=== PATIENT | male | born 1995 | race Caucasian/White ===

== ENCOUNTER 2019-09-14 12:50 | Inpatient (IN) ==
[2019-09-14] MEDS ORDERED: IOPAMIDOL 100 ML BOTTLE IV ONE (12:51)
[2019-09-14] MEDS ORDERED: LORazepam 2 MG/ML VIAL IV ONE (13:05)
[2019-09-14] MEDS ORDERED: 0.9 % SODIUM CHLORIDE 1,000 ML IV ONE (13:05)
[2019-09-14] MEDS ORDERED: INSULIN REGULAR, HUMAN 1 UNIT/0.01 ML UNIT IV ONE (13:07)
[2019-09-14] MEDS ORDERED: INSULIN REGULAR, HUMAN 50 UNIT in 0.9 % SODIUM CHLORIDE 99.5 ML IV SCH (13:15)
[2019-09-14 14:05] LABS: Basophils # (Auto) 0.02 K/mcL (0.00-0.30); Basophils % (Auto) 0.3 % (0.0-2.0); Eosinophils # (Auto) 0.07 K/mcL (0.00-0.70); Eosinophils % (Auto) 0.9 % (0.0-7.0); Hematocrit 41.3 % (40.1-51.0); Hemoglobin 15.4 g/dL (13.7-17.5); Lymphocytes # (Auto) 2.06 K/mcL (1.50-4.80); Mean Corpuscular HGB Conc 37.3 g/dL (31.0-36.0); Mean Platelet Volume 10.9 fL (7.4-10.4); Monocytes # (Auto) 0.44 K/mcL (0.10-0.90); Monocytes % (Auto) 5.8 % (1.0-12.0); Platelet Count 190 K/mcL (140-440); RBC 4.86 M/mcL (4.63-6.08); Red Cell Distribution Width 12.3 % (11.5-14.5); WBC 7.6 K/mcL (4.50-11.00)
--- NOTE | 2019-09-14 14:19 | Emergency Department Note ---
Arrhythmia/Palpitations HPI - General Chief Complaint: Arrhythmia/Palpitations Stated Complaint: "Heart going fast" Time Seen by Provider: 09/14/19 12:53 Source: patient Mode of arrival: ambulatory Limitations: no limitations - History of Present Illness HPI Narrative: 24-year-old obese male comes in complaining of palpitations and heart racing. He has been nauseous and diaphoretic. Having to urinate all the time. His mother is worried that he has diabetes now but he has not previously been diagnosed. Noted blurry vision as well. Anxious - Related Data Home Medications Medication Instructions Recorded Confirmed No Known Home Meds 09/14/19 09/14/19 Allergies Allergy/AdvReac Type Severity Reaction Status Date / Time No Known Drug Allergies Allergy Verified 04/24/16 09:16 Review of Systems All systems ED: reviewed and negative except as stated. Past Medical History - Past Medical History Attestation: Yes: The following information was validated with the patient. PMF Narrative: Medical History Pilonidal cyst with abscess (Acute) Medical history: Reports: no medical history Psychiatric history: Reports: anxiety - Social History smoking status: Never smoker Physical Exam Mildly diaphoretic very anxious appearing-panicking even with tachycardia and tachypnea. Normocephalic atraumatic. Conjunctive a mildly injected bilaterally. Pupils are wide bilaterally. No nasal discharge or congestion. Oropharynx is pink and moist. Neck is supple without lymphadenopathy or thyromegaly. Heart is regular rate and rhythm no murmur appreciated. Lungs are clear to auscultation bilaterally without wheezes rales rhonchi or respiratory distress. Abdomen is soft nontender nondistended. No peritoneal signs or guarding. Mild edema bilateral feet. Limitations: no limitations Course Vital Signs Pulse Rate 124 H 09/14/19 12:51 Respiratory Rate 18 09/14/19 12:51 Blood Pressure 158/114 09/14/19 12:51 Pulse Oximetry (%) 100 09/14/19 12:51 Pulse Rate 103 H 09/14/19 16:29 Respiratory Rate 16 09/14/19 16:29 Blood Pressure 143/95 09/14/19 16:02 Pulse Oximetry (%) 96 09/14/19 16:29 Arrhythmia/Palpitations - Lab Data Lab results reviewed: Yes I reviewed the patient's lab results. Result diagrams: 09/14/19 13:05 09/14/19 13:05 Lab Results 09/14/19 09/14/19 09/14/19 Range/Units 13:05 13:05 13:05 WBC 7.6 (4.50-11.00) K/mcL RBC 4.86 (4.63-6.08) M/mcL Hgb 15.4 (13.7-17.5) g/dL Hct 41.3 (40.1-51.0) % MCV 85.0 (80.0-100.0) fL MCH 31.7 (26.0-34.0) pg MCHC 37.3 H (31.0-36.0) g/dL RDW 12.3 (11.5-14.5) % Plt Count 190 (140-440) K/mcL MPV 10.9 H (7.4-10.4) fL Gran % 66.0 (38.0-78.0) % Lymph % (Auto) 27.0 (15.5-49.0) % Ritchie % (Auto) 5.8 (1.0-12.0) % Eos % (Auto) 0.9 (0.0-7.0) % Baso % (Auto) 0.3 (0.0-2.0) % Gran # 5.04 (1.80-8.00) K/mcL Lymph # (Auto) 2.06 (1.50-4.80) K/mcL Ritchie # (Auto) 0.44 (0.10-0.90) K/mcL Eos # (Auto) 0.07 (0.00-0.70) K/mcL Baso # (Auto) 0.02 (0.00-0.30) K/mcL D-Dimer 0.30 (0.00-0.40) ug/ml Sodium 130 L (133-145) mmol/L Potassium 3.8 (3.3-5.1) mmol/L Chloride 89 L (96-108) mmol/L Carbon Dioxide 22 (22-30) mmol/L Anion Gap 19.0 H (8-16) BUN 6 (6-20) mg/dl Creatinine 1.1 (0.7-1.2) mg/dl GFR Calculation 93 Glucose 610 H* (70-105) mg/dL Calcium 9.2 (8.6-10.4) mg/dl Magnesium 2.0 (1.6-2.5) mg/dL Total Bilirubin 1.1 H (0.0-1.0) mg/dL AST 49 H (0-37) U/l ALT 79 H (0-40) U/l Alkaline Phosphatase 100 (39-117) U/L Troponin T (0-0.03) ng/ml Total Protein 7.0 (5.9-8.4) gm/dL Albumin 4.2 (3.2-5.2) gm/dL Globulin 2.8 (2.2-3.7) gm/dL Albumin/Globulin Ratio 1.5 (1.0-2.3) Urine Color Urine Appearance Urine pH (5.0-9.0) Ur Specific [place] (1.000-1.035) Urine Protein (NEG) mg/dL Urine Glucose (UA) (NEG) mg/dL Urine Ketones (NEG) mg/dL Urine Occult Blood (<0.03) mg/dL Urine Nitrate (NEG) Urine Bilirubin (NEG) mg/dL Urine Urobilinogen (NEG) mg/dL Ur Leukocyte Esterase (NEG) /uL Urine RBC (0-1) /hpf Urine WBC (0-4) /hpf Ur Squamous Epith Cells (0-4) /hpf Ur Transition Epith Cell (0-2) /hpf Urine Bacteria (0) /hpf Urine Mucus (0) /hpf Ur Culture Indicated? Urine Opiates Screen (NONDETECTED) Ur Oxycodone Screen (NONDETECTED) Urine Methadone Screen (NONDETECTED) Ur Barbiturates Screen (NONDETECTED) Ur Phencyclidine Scrn (NONDETECTED) Ur Amphetamines Screen (NONDETECTED) U Benzodiazepines Scrn (NONDETECTED) Urine Cocaine Screen (NONDETECTED) U Marijuana (THC) Screen (NONDETECTED) 09/14/19 09/14/19 09/14/19 Range/Units 13:05 14:00 14:00 WBC (4.50-11.00) K/mcL RBC (4.63-6.08) M/mcL Hgb (13.7-17.5) g/dL Hct (40.1-51.0) % MCV (80.0-100.0) fL MCH (26.0-34.0) pg MCHC (31.0-36.0) g/dL RDW (11.5-14.5) % Plt Count (140-440) K/mcL MPV (7.4-10.4) fL Gran % (38.0-78.0) % Lymph % (Auto) (15.5-49.0) % Ritchie % (Auto) (1.0-12.0) % Eos % (Auto) (0.0-7.0) % Baso % (Auto) (0.0-2.0) % Gran # (1.80-8.00) K/mcL Lymph # (Auto) (1.50-4.80) K/mcL Ritchie # (Auto) (0.10-0.90) K/mcL Eos # (Auto) (0.00-0.70) K/mcL Baso # (Auto) (0.00-0.30) K/mcL D-Dimer (0.00-0.40) ug/ml Sodium (133-145) mmol/L Potassium (3.3-5.1) mmol/L Chloride (96-108) mmol/L Carbon Dioxide (22-30) mmol/L Anion Gap (8-16) BUN (6-20) mg/dl Creatinine (0.7-1.2) mg/dl GFR Calculation Glucose (70-105) mg/dL Calcium (8.6-10.4) mg/dl Magnesium (1.6-2.5) mg/dL Total Bilirubin (0.0-1.0) mg/dL AST (0-37) U/l ALT (0-40) U/l Alkaline Phosphatase (39-117) U/L Troponin T < 0.01 (0-0.03) ng/ml Total Protein (5.9-8.4) gm/dL Albumin (3.2-5.2) gm/dL Globulin (2.2-3.7) gm/dL Albumin/Globulin Ratio (1.0-2.3) Urine Color Straw Urine Appearance Clear Urine pH 7.0 (5.0-9.0) Ur Specific [place] 1.027 (1.000-1.035) Urine Protein Neg (NEG) mg/dL Urine Glucose (UA) >=500 A (NEG) mg/dL Urine Ketones 5/tr A (NEG) mg/dL Urine Occult Blood Neg (<0.03) mg/dL Urine Nitrate Neg (NEG) Urine Bilirubin Neg (NEG) mg/dL Urine Urobilinogen Neg (NEG) mg/dL Ur Leukocyte Esterase Neg (NEG) /uL Urine RBC 0 (0-1) /hpf Urine WBC 0 (0-4) /hpf Ur Squamous Epith Cells 0 (0-4) /hpf Ur Transition Epith Cell < 1 (0-2) /hpf Urine Bacteria 0 (0) /hpf Urine Mucus Few (0) /hpf Ur Culture Indicated? No Urine Opiates Screen None detected (NONDETECTED) Ur Oxycodone Screen None detected (NONDETECTED) Urine Methadone Screen None detected (NONDETECTED) Ur Barbiturates Screen None detected (NONDETECTED) Ur Phencyclidine Scrn None detected (NONDETECTED) Ur Amphetamines Screen None detected (NONDETECTED) U Benzodiazepines Scrn None detected (NONDETECTED) Urine Cocaine Screen None detected (NONDETECTED) U Marijuana (THC) Screen None detected (NONDETECTED) - Radiology Data Radiology results reviewed: Yes I reviewed the patient's radiology results. 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 He is not currently having belly pain - EKG Data EKG attestation: Yes I reviewed and interpreted this EKG., Yes There are no EKG findings of acute coronary syndrome EKG results narrative: EKG interpretation limited by artifact. He does have sinus tachycardia with right bundle branch block Disposition Pt seen by DURABLE MEDICAL EQUIPMENT REPAIRER/PA only: No Clinical Impression: Anxiety, Sinus tachycardia, Palpitations, New onset type 2 diabetes mellitus Summary: New onset type 2 diabetes is seen with blood sugar 582 at bedside check. Noted sinus tachycardia and tachypnea, blurry vision. This could be DKA or other metabolic derangement. Other possibilities include cardiac abnormality sepsis or other infection or even GI issues. Will check laboratory and start DKA orders with insulin drip after bolus Chemistry panel comes back with a blood sugar of 610. Anion gap is elevated. Liver enzymes are also elevated. Will order CT scan to rule out biliary tree/pancreatic issues. 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 We could not get an ABG on the first try and patient refused to let us try again. He is feeling better on IV fluids and with the insulin drip. Discussed with him his results. Blood sugar went from 5 82 to 5 63 to 464 to 389 on the drip-this was after a 10 unit bolus and concurrent with fluid-the patient had been here 3-1/2-hours. We will recheck a Chem-[address] and discuss with hospitalist Dr. Puga, our hospitalist cussed the patient with me and he agreed to accept the patient for further care and evaluation in the hospital Disposition: Xfer As Inpt ([facility]) Condition: Fair
[2019-09-14 14:30] LABS: ALT/SGPT 79 U/l (0-40); AST/SGOT 49 U/l (0-37); Albumin 4.2 gm/dL (3.2-5.2); Albumin/Globulin Ratio 1.5 (1.0-2.3); Alkaline Phosphatase 100 U/L (39-117); Bilirubin,Total 1.1 mg/dL (0.0-1.0); Blood Urea Nitrogen 6 mg/dl (6-20); Calcium 9.2 mg/dl (8.6-10.4); Carbon Dioxide 22 mmol/L (22-30); Chloride 89 mmol/L (96-108); Globulin 2.8 gm/dL (2.2-3.7); Glomerular Filtration Rate 93; Glucose 610 mg/dL (70-105)
[2019-09-14 14:58] LABS: Appearance,Urine CLEAR; Bacteria,Urine 0 /hpf (0); Bilirubin,Urine NEG (NEG); Color,Urine STRAW; Culture Indicated,Urine NO; Glucose,Urine (UA) >=500 mg/dL (NEG); Ketones,Urine 5/TR mg/dL (NEG); Leukocyte Esterase,Urine NEG /uL (NEG); Mucus,Urine FEW /hpf (0); Nitrate,Urine NEG (NEG); Protein,Urine NEG (NEG); Specific Gravity,Urine 1.027 (1.000-1.035); Urine Blood NEG mg/dL (<0.03); Urine RBC 0 /hpf (0-1); Urine Squamous Epithelial Cell 0 /hpf (0-4); Urine Transitional Epi Cells < 1 /hpf (0-2); Urine WBC 0 /hpf (0-4); Urobilinogen,Urine NEG (NEG)
[2019-09-14 15:08] LABS: Amphetamine Screen,Urine NONE DETECTED (NONDETECTED); Barbiturate Screen,Urine NONE DETECTED (NONDETECTED); Benzodiazepines Screen,Urine NONE DETECTED (NONDETECTED); Cannabinoid Screen,Urine NONE DETECTED (NONDETECTED); Cocaine Screen,Urine NONE DETECTED (NONDETECTED); Opiate Screen,Urine NONE DETECTED (NONDETECTED); Oxycodone, Urine Screen NONE DETECTED (NONDETECTED); Phencyclidine Screen,Urine NONE DETECTED (NONDETECTED)
--- NOTE | 2019-09-14 15:35 | Cat Scan Report ---
INDICATION: new DM2, elevated liver enzymes, belly pain diapho COMPARISON: None. TECHNIQUE: Axial images were obtained through the abdomen and pelvis. Sagittally and coronally reformatted images. A mL Isovue 370 injected intravenously. Oral contrast material was not administered FINDINGS: Lung bases:Negative. No pulmonary parenchymal nodule. No pleural fluid or pericardial fluid Liver:There is severe hepatic steatosis. No focal intrahepatic abnormality. No hepatic mass. Left lobe is hypertrophied. Liver contour is smooth. No evidence for cirrhosis. There is no ascites. Gallbladder, bilary:No calcified gallstones. No gallbladder wall thickening. No dilated intra or extrahepatic bile ducts. Spleen:There is splenomegaly. The spleen measures 15 x 11 x 8 cm. No focal intrasplenic abnormality. Normal enhancement of the splenic and portal veins. Portal vein appears normal. Pancreas:No pancreatic mass. No peripancreatic abnormality Adrenal glands:Negative Kidneys, ureters, bladder:No solid or cystic renal mass. No hydronephrosis. No obstructing calculi. There is no hydroureter. No ureteral stone No bladder calculi or detectable mass Gastrointestinal:The colon is on the left side and most of the small bowel is on the right side. The superior mesenteric artery is relatively small in the superior mesenteric vein is to the right of the artery. Findings are consistent with intestinal nonrotation. There is swirling of vessels consistent with mild midgut volvulus. There is no evidence for bowel ischemia. No infarction. There is no mechanical small bowel obstruction. Stomach is normal. The duodenum is difficult to follow but does appear to cross the midline Appendix: The appendix is negative Vascular:Negative abdominal aorta. Superior mesenteric artery and celiac trunk are normal. Normal opacification of the inferior mesenteric artery Lymphatic:No retroperitoneal or mesenteric adenopathy Mesentery, peritoneum: No free intraperitoneal fluid. No mesenteric or retroperitoneal mass. Reproductive:Prostate is not enlarged Musculoskeletal:No lumbar compression fractures. Sacrum and pelvis are negative. No hip fracture. IMPRESSION: 1. Severe hepatic steatosis. No hepatic mass. Liver contour is smooth 2. Splenomegaly 3. Intestinal nonrotation 4. Swelling of vessels consistent with mild, or predisposition to mid gut volvulus 5. No mechanical small bowel obstruction. No evidence for bowel ischemia The exam was performed using radiation dose optimization techniques including, but not limited to, automated exposure control, adjustment of the mA and/or kV according to patient size and use of iterative reconstruction technique. Interpreted and Authenticated by: Mannie Gonzalez 09/14/19
--- NOTE | 2019-09-14 16:37 | Internal Med History&Physical ---
Medical - H&P: [facility] Patient information: Note initiated : 09/14/19 at 4:36 pm Service Date, if different from initiated Date: [] Patient: Marin Antonio a 24 y/o M admitted on for "Heart going fast". Chief Complaint: [] Chief complaint: Weakness/fatigue/palpitation and lightheadedness History of present illness: Mr. Antonio is a 24 year old M with no significant primarily history except for obesity with a BMI over 40. Patient works at [employer] however over the last week has noted increasing thirst and urination and a feeling of dehydration. Over the last 48 hours he is gotten progressively weaker and fatigued. This morning could not get out of bed, was lightheaded dizzy diaphoretic and felt like a log laying on the bed. Symptoms were associated with chest palpitations and blurred vision. With increasing concerns he presents to the ER Initial work-up was consistent with DKA with blood sugars over 600 elevated anion gap. Patient was started on insulin drip. Hospitalist service was consulted At the time evaluation patient is anxious but able to answer most of the ques tions. He denies fever, chills, shortness breath, changes in medications. He further denies diarrhea, dysuria or weight loss. He endorses to multiple family members including both parents with diabetes. Patient appears very anxious. Denies headache photophobia Review of systems A 10 point review system was performed and is negative except for ones discussed above Medical - H&P: PMH Medical history: Morbid obesity Anxiety Pertinent family history: Parents diabetes Social history: Works at [employer] Denies smoking or alcohol use Medical - H&P: Meds Home Medications Medication Instructions Recorded Confirmed Type No Known Home Meds 09/14/19 09/14/19 History Allergies Allergy/AdvReac Type Severity Reaction Status Date / Time No Known Drug Allergies Allergy Verified 04/24/16 09:16 Medical - H&P: Exam - Constitutional Vitals: Pulse Resp BP Pulse Ox 103 H 16 143/95 96 09/14/19 16:29 09/14/19 16:29 09/14/19 16:02 09/14/19 16:29 General appearance: morbidly obese Exam: Head normocephalic Oral cavity dry No ear nose discharge No lymphadenopathy Eye movement symmetrical S1-S2 tachycardia Nonlabored breathing Abdomen soft nondistended Extremity no sinus clubbing no joint swelling Skin no suspicious lesion psych anxious but alert cooperative Neuro nonfocal Medical - H&P: Reslt - Labs CBC & Chem 7: 09/14/19 13:05 09/14/19 13:05 Labs: Short CBC 09/14/19 Range/Units 13:05 WBC 7.6 (4.50-11.00) K/mcL Hgb 15.4 (13.7-17.5) g/dL Hct 41.3 (40.1-51.0) % Plt Count 190 (140-440) K/mcL BMP 09/14/19 13:05 Sodium 130 L Potassium 3.8 Chloride 89 L Carbon Dioxide 22 BUN 6 Creatinine 1.1 Glucose 610 H* Calcium 9.2 Cardiac Enzymes 09/14/19 Range/Units 13:05 Troponin T < 0.01 (0-0.03) ng/ml Liver Function 09/14/19 Range/Units 13:05 Total Bilirubin 1.1 H (0.0-1.0) mg/dL AST 49 H (0-37) U/l ALT 79 H (0-40) U/l Alkaline Phosphatase 100 (39-117) U/L Albumin 4.2 (3.2-5.2) gm/dL Urine 09/14/19 Range/Units 14:00 Urine Color Straw Urine Appearance Clear Urine pH 7.0 (5.0-9.0) Ur Specific [place] 1.027 (1.000-1.035) Urine Protein Neg (NEG) mg/dL Urine Glucose (UA) >=500 A (NEG) mg/dL Medical - H&P: A/P (1) DKA (diabetic ketoacidoses) Current visit: Yes Status: Acute * DKA -new onset diabetes. Continue management per protocol. Aggressive fluid/electrolyte replacement. Close hemodynamic monitoring. Diabetic consult. * Anxiety continue as needed benzodiazepine * Electrolyte abnormalities replace as indicated * Full code Plan * Inpatient PCU admit for DKA management with insulin drip/aggressive R replacement * Diabetic education * Keep n.p.o.
[2019-09-14 16:41] LABS: POC Blood Urea Nitrogen 6 mg/dl (6-20); POC CO2 28 mmol/L (22-30); POC Calcium, Ionized 1.24 mmol/L (1.16-1.32); POC Chloride 101 mmol/L (96-108); POC Creatinine 0.9 mg/dl (0.7-1.2); POC Glucose, Random 345 mg/dL (70-105); POC Potassium 3.9 mmol/L (3.3-5.1); POC Sodium 136 mmol/L (133-145)
[2019-09-14] MEDS ORDERED: LORazepam 0.5 MG TABLET PO PRN (18:18)
[2019-09-14] MEDS ORDERED: MAGNESIUM SULFATE 2 GM/50 ML BAG IV PRN (18:18)
[2019-09-14] MEDS ORDERED: BISACODYL 10 MG SUPP.RECT PR PRN (18:18)
[2019-09-14] MEDS ORDERED: POLYETHYLENE GLYCOL 3350 17 GM PACKET PO PRN (18:18)
[2019-09-14] MEDS ORDERED: ONDANSETRON 4 MG ODT TABLET SL PRN (18:18)
[2019-09-14] MEDS ORDERED: ACETAMINOPHEN 650 MG/65 ML BOTTLE IV PRN (18:18)
[2019-09-14] MEDS ORDERED: POTASSIUM CHLORIDE 40 MEQ in DEXTROSE 5% IN WATER 500 ML IV PRN (18:18)
[2019-09-14] MEDS ORDERED: POTASSIUM CHLORIDE 20 MEQ PACKET PO PRN (18:18)
[2019-09-14] MEDS ORDERED: ACETAMINOPHEN 325 MG TABLET PO PRN (18:18)
[2019-09-14] MEDS ORDERED: METOPROLOL TARTRATE 5 MG/5 ML VIAL IV PRN (18:18)
[2019-09-14] MEDS ORDERED: ONDANSETRON 4 MG/2 ML VIAL IV PRN (18:18)
[2019-09-14] MEDS ORDERED: INSULIN REGULAR, HUMAN 1 UNIT/0.01 ML UNIT ONE (18:47)
[2019-09-14] MEDS: DEXTROSE 5%-1/2NS 1,000 ML IV SCH (18:56)
[2019-09-14] MEDS: 0.9 % SODIUM CHLORIDE 1,000 ML IV SCH (18:56)
[2019-09-14 18:59] LABS: ABG Methemoglobin 0.3 % (0.4-1.5); Total Hemoglobin 14.1 gm/dL (13.5-16.5); VBG Base Excess 1.5 (-2.0-2.0); VBG HCO3 27.8 mmol/L (24.0-28.0); VBG Oxygen Saturation 73.4 % (40.0-70.0); VBG PCO2 50.7 mmHg (41.0-51.0); VBG PH 7.36 U (7.32-7.42); VBG PO2 43 mmHg (25-40); VBG Total CO2 29.4 mmol/L (25.0-29.0)
[2019-09-14] MEDS: 0.45 % SODIUM CHLORIDE 1,000 ML IV SCH (19:08)
[2019-09-14] MEDS: INSULIN REGULAR, HUMAN 50 UNIT in 0.9 % SODIUM CHLORIDE 99.5 ML IV SCH (19:19)
[2019-09-14] MEDS: SENNOSIDES/DOCUSATE SODIUM 1 TAB TABLET PO SCH (21:12)
[2019-09-14] MEDS: CYANOCOBALAMIN (VITAMIN B-12) 500 MCG TABLET PO SCH (21:12)
[2019-09-14] MEDS: DOCUSATE SODIUM 100 MG CAPSULE PO SCH (21:12)
[2019-09-14] MEDS: 0.9 % SODIUM CHLORIDE 10 ML SYRINGE IV SCH (21:13)
[2019-09-14] MEDS: HEPARIN 5,000 UNIT/ML VIAL SQ SCH (22:07)
[2019-09-15 01:27] LABS: Bilirubin,Direct < 0.2 mg/dL (0.0-0.3); Chloride 102 mmol/L (96-108)
[2019-09-15 01:56] LABS: ALT/SGPT 71 U/l (0-40); AST/SGOT 50 U/l (0-37); Albumin 3.8 gm/dL (3.2-5.2); Albumin/Globulin Ratio 1.5 (1.0-2.3); Alkaline Phosphatase 79 U/L (39-117); Bilirubin,Total 0.9 mg/dL (0.0-1.0); Blood Urea Nitrogen 5 mg/dl (6-20); Calcium 8.6 mg/dl (8.6-10.4); Carbon Dioxide 22 mmol/L (22-30); Globulin 2.6 gm/dL (2.2-3.7); Glomerular Filtration Rate 118; Glucose 177 mg/dL (70-105); Lactate Dehydrogenase 170 U/L (94-250); Phosphorous 3.4 mg/dL (2.7-4.5); Triglycerides 1345 mg/dl (<150); Uric Acid 4.9 mg/dL (2.5-8.0)
[2019-09-15] MEDS: 0.45 % SODIUM CHLORIDE 1,000 ML IV SCH ×2 (04:24→14:32)
[2019-09-15] MEDS: DEXTROSE 5%-1/2NS 1,000 ML IV SCH ×2 (05:01→15:51)
[2019-09-15] MEDS: 0.9 % SODIUM CHLORIDE 10 ML SYRINGE IV SCH ×3 (05:01→20:53)
[2019-09-15 06:27] LABS: Hematocrit 37.5 % (40.1-51.0); Hemoglobin 13.4 g/dL (13.7-17.5); Mean Cell Volume 87.6 fL (80.0-100.0); Mean Corpuscular HGB Conc 35.7 g/dL (31.0-36.0); Mean Platelet Volume 10.6 fL (7.4-10.4); Platelet Count 164 K/mcL (140-440); RBC 4.28 M/mcL (4.63-6.08); Red Cell Distribution Width 12.8 % (11.5-14.5); WBC 9.7 K/mcL (4.50-11.00)
[2019-09-15 06:48] LABS: Chloride 104 mmol/L (96-108)
[2019-09-15 06:53] LABS: ALT/SGPT 58 U/l (0-40); AST/SGOT 42 U/l (0-37); Albumin 3.5 gm/dL (3.2-5.2); Albumin/Globulin Ratio 1.5 (1.0-2.3); Alkaline Phosphatase 77 U/L (39-117); Bilirubin,Direct 0.2 mg/dL (0.0-0.3); Bilirubin,Total 0.8 mg/dL (0.0-1.0); Blood Urea Nitrogen 5 mg/dl (6-20); Calcium 8.4 mg/dl (8.6-10.4); Carbon Dioxide 22 mmol/L (22-30); Globulin 2.4 gm/dL (2.2-3.7); Glomerular Filtration Rate 118; Glucose 191 mg/dL (70-105); Lactate Dehydrogenase 168 U/L (94-250); Phosphorous 3.6 mg/dL (2.7-4.5); Uric Acid 4.8 mg/dL (2.5-8.0)
[2019-09-15 07:11] LABS: Triglycerides 1100 mg/dl (<150)
[2019-09-15 08:26] LABS: Band Neutrophils % 1 % (0-10); Eosinophils % (Manual) 1 % (0-7); Lymphocytes % 27 % (15-49); Monocytes % (Manual) 2 % (1-12); Platelet Estimate NORMAL (NORMAL); RBC Morphology NORMAL (NORMAL); Segmented Neutrophils % 69 % (38-78)
[2019-09-15] MEDS: MULTIVIT,THER IRON,CA,FA & MIN 1 TABLET PO SCH (09:01)
[2019-09-15] MEDS: THIAMINE 100 MG TABLET PO SCH (09:01)
[2019-09-15] MEDS: CYANOCOBALAMIN (VITAMIN B-12) 500 MCG TABLET PO SCH ×2 (09:03→20:52)
[2019-09-15] MEDS: HEPARIN 5,000 UNIT/ML VIAL SQ SCH ×2 (09:04→20:52)
[2019-09-15] MEDS: DOCUSATE SODIUM 100 MG CAPSULE PO SCH ×2 (09:10→20:52)
[2019-09-15] MEDS: FOLIC ACID 1 MG TABLET PO SCH (09:16)
[2019-09-15] MEDS: INSULIN REGULAR, HUMAN 50 UNIT in 0.9 % SODIUM CHLORIDE 99.5 ML IV SCH (09:17)
--- NOTE | 2019-09-15 09:42 | Internal Med Progress Note ---
Medical - PN: Subj Patient information: Note initiated : 09/15/19 at 9:38 am Service Date, if different from initiated Date: [] Patient: Marin Antonio 24 y/o M admitted on 09/14/19 for "Heart going fast". Chief Complaint: [] Interval history: Mr. Antonio is a 24 year old M with no significant primarily history except for obesity with a BMI over 40. Patient works at [employer] however over the last week has noted increasing thirst and urination and a feeling of dehydration. Over the last 48 hours he is gotten progressively weaker and fatigued. This morning could not get out of bed, was lightheaded dizzy diaphoretic and felt like a log laying on the bed. Symptoms were associated with chest palpitations and blurred vision. With increasing concerns he presents to the ER Initial work-up was consistent with DKA with blood sugars over 600 elevated anion gap. Patient was started on insulin drip. Hospitalist service was consulted At the time evaluation patient is anxious but able to answer most of the questions. He denies fever, chills, shortness breath, changes in medications. He further denies diarrhea, dysuria or weight loss. He endorses to multiple family members including both parents with diabetes. Patient appears very anxious. Denies headache photophobia 09/14-patient doing well on insulin drip. At 5 units/h. Transition to subcu insulin once steady state achieved. Anion gap bridged and bicarb normalized. No overnight events. Stable hemodynamics and vitals. Sodium 138, potassium 3.5. LFTs improving. Triglycerides 1100 down from 1345. - Constitutional Vitals: Vital Signs Temp Pulse Resp BP Pulse Ox 97.2 F 68 20 146/103 93 09/15/19 08:00 09/15/19 06:00 09/15/19 08:00 09/15/19 08:00 09/15/19 08:00 Period Temp Pulse Resp BP Sys/Kramer Pulse Ox Last 24 Hr 96.9 F-98.4 F 66-124 11-21 124-158/76-114 93-100 Intake and Output 09/14/19 09/15/19 09/15/19 21:59 05:59 13:59 Intake Total 1199 2168 32 Output Total 400 Balance 1199 2168 -368 Weight 270 lb Intake & Output: Intake & Output 09/14/19 09/15/19 09/15/19 21:59 05:59 13:59 Intake Total 1199 2168 32 Output Total 400 Balance 1199 2168 -368 Weight 270 lb Intake: IV 1199 8 32 Sodium Chloride 0.9% 1,000 ml @ 1000 1000 Wide Open IV BOLUS MICK Rx#: [id number] Dextrose 5%-1/2Ns IV Solution 1 1000 ,000 ml @ 100 mls/hr IV .Q10H MICK Rx#:[id number] HumuLIN R 50 UNIT In Sodium 199 68 32 Chloride 0.9% 99.5 ml @ 1 UNIT/ HR 2 mls/hr IV DUR MICK Rx#: [id number] Oral 100 0 Output: Void Amount 400 Other: Urine Appearance Clear Urine Color Dark Ivon General appearance: no acute distress Exam: Alert but anxious Obese Nonlabored breathing Nondistended nontender abdomen Medical - PN: Obj Da - Labs CBC & Chem 7: 09/15/19 04:48 09/15/19 04:48 Labs: Abnormal Lab Results 09/15/19 09/15/19 09/15/19 04:48 04:48 00:10 RBC 4.28 L Hgb 13.4 L Hct 37.5 L MCHC MPV 10.6 H ABG Methemoglobin VBG pO2 VBG Total CO2 VBG O2 Saturation Carboxyhemoglobin Sodium Chloride Anion Gap BUN 5 L 5 L Glucose 191 H 177 H POC Glucose Calcium 8.4 L Total Bilirubin GGT 99 H 128 H AST 42 H 50 H ALT 58 H 71 H Triglycerides 1100 H 1345 H Urine Glucose (UA) Urine Ketones 09/14/19 09/14/19 09/14/19 18:32 16:31 14:00 RBC Hgb Hct MCHC MPV ABG Methemoglobin 0.3 L VBG pO2 43 H VBG Total CO2 29.4 H VBG O2 Saturation 73.4 H Carboxyhemoglobin 4.8 H Sodium Chloride Anion Gap BUN Glucose POC Glucose 345 H Calcium Total Bilirubin GGT AST ALT Triglycerides Urine Glucose (UA) >=500 A Urine Ketones 5/tr A 09/14/19 09/14/19 13:05 13:05 RBC Hgb Hct MCHC 37.3 H MPV 10.9 H ABG Methemoglobin VBG pO2 VBG Total CO2 VBG O2 Saturation Carboxyhemoglobin Sodium 130 L Chloride 89 L Anion Gap 19.0 H BUN Glucose 610 H* POC Glucose Calcium Total Bilirubin 1.1 H GGT AST 49 H ALT 79 H Triglycerides Urine Glucose (UA) Urine Ketones Meds: Medications Acetaminophen (Tylenol) 650 mg PO Q4-6HP PRN; Protocol PRN Reason: Per Pain Protocol/Fever > 101 Last Admin: 09/14/19 23:10 Dose: 650 mg Documented by: Bisacodyl (Dulcolax) 10 mg OR Q2-3DAYS PRN PRN Reason: Constipation Cyanocobalamin (Vitamin B-12) 1,000 mcg PO BID [facility] [place] Stop: 09/19/19 09:01 Last Admin: 09/15/19 09:03 Dose: 1,000 mcg Documented by: Diagnostic Test (Pha) (Accu-Chek) 1 each FS Q1 [facility] Last Admin: 09/15/19 09:07 Dose: 1 each Documented by: Docusate Sodium (Colace) 100 mg PO BID [facility] [place] Last Admin: 09/15/19 09:10 Dose: 100 mg Documented by: Folic Acid (Folic Acid) 1 mg PO DAILY [facility] Last Admin: 09/15/19 09:16 Dose: 1 mg Documented by: Heparin Sodium (Porcine) (Heparin) 5,000 unit SQ Q12 MICK Last Admin: 09/15/19 09:04 Dose: 5,000 unit Documented by: Insulin Human Regular 50 unit/ (Sodium Chloride) 100 mls @ 2 mls/hr IV DUR [facility] [place]; Protocol Last Admin: 09/15/19 09:17 Dose: 5.5 unit/hr, 11 mls/hr Documented by: Sodium Chloride (Sodium Chloride 0.9%) 1,000 mls @ 0 mls/hr IV BOLUS [facility] [place] Last Infusion: 09/14/19 23:20 Dose: Infused Documented by: Acetaminophen (Ofirmev) 650 mg in 65 mls @ 130 mls/hr IV Q6HP PRN; Protocol PRN Reason: Per Pain Protocol/Fever > 101 Magnesium Sulfate (Magnesium Sulfate) 2 gm in 50 mls @ 50 mls/hr IV UD PRN PRN Reason: MG = or < 1.7 Potassium Chloride 40 meq/ (Dextrose) 520 mls @ 130 mls/hr IV UD PRN PRN Reason: K+ = or < 3.5 Last Admin: 09/15/19 08:20 Dose: 130 mls/hr Documented by: Dextrose/Sodium Chloride (Dextrose 5%-1/2ns Iv Solution) 1,000 mls @ 100 mls/hr IV .Q10H [facility] [place] Last Admin: 09/15/19 05:01 Dose: 100 mls/hr Documented by: Sodium Chloride (Sodium Chloride 0.45%) 1,000 mls @ 100 mls/hr IV .Q10H [facility] [place] Last Admin: 09/15/19 04:24 Dose: Not Given Documented by: Iron Carb/Multivit/Cost Accounting Analyst/Folic Acid (Multivitamin W/Minerals) 1 tab PO DAILY [facility] Last Admin: 09/15/19 09:01 Dose: 1 tab Documented by: Lorazepam (Ativan) 0.5 mg PO Q8HP PRN PRN Reason: ANXIETY/SEDATION Metoprolol Tartrate (Lopressor) 5 mg IV Q5M PRN PRN Reason: Heart Rate > 140 bpm Ondansetron HCl (Zofran Odt) 4 mg SL Q4-6HP PRN; Protocol PRN Reason: Nausea And Vomiting Ondansetron HCl (Zofran) 4 mg IV Q4-6HP PRN; Protocol PRN Reason: Nausea And Vomiting Polyethylene Glycol (Miralax) 17 gm PO DAILYP PRN PRN Reason: Constipation Potassium Chloride (Klor-Con) 40 meq PO DAILYP PRN PRN Reason: K+ < 3.5 Senna/Docusate Sodium (Senna Plus Tablet) 1 tab PO HS [facility] [place] Last Admin: 09/14/19 21:12 Dose: Not Given Documented by: Sodium Chloride (Saline Flush) 10 ml IV Q8 [facility] Last Admin: 09/15/19 05:01 Dose: Not Given Documented by: Thiamine HCl (Vitamin B1) 100 mg PO DAILY [facility] Last Admin: 09/15/19 09:01 Dose: 100 mg Documented by: - ABG Interpretation ABG results: 09/14/19 18:32 ABG Methemoglobin 0.3 L VBG pH 7.36 VBG pCO2 50.7 VBG pO2 43 H VBG HCO3 27.8 VBG Total CO2 29.4 H VBG O2 Saturation 73.4 H VBG Base Excess 1.5 Medical - PN: A/P - Time Spent With Patient Total time spent is greater than 50% in coordination of care (as documented) at patient's floor/unit and/or counseling patient: 25 - 35 minutes (1) DKA (diabetic ketoacidoses) Status: Acute Assessment and plan: * DKA -new onset diabetes. Wean insulin drip to a steady state. Transition to subcu insulin/diabetic diet. * Anxiety continue as needed benzodiazepine * Elevated LFTs likely Albarado. Recommended weight loss measures * Hypertriglyceridemia-check lipid panel. Initiate statin * Electrolyte replacement as indicated * Full code Plan * Wean insulin drip * Transition to diabetic diet/subcu insulin once steady state achieved * Lipid panel * Diabetic education Current Visit: Yes Medical - PN: Qual - VTE Deep Vein Thrombosis/Pulmonary Embolism Present on Admission: No
[2019-09-15 10:19] LABS: HDL Cholesterol 15 mg/dl (>40); Non-HDL Cholesterol 222 (LDL TARGET+30)
[2019-09-15 10:29] LABS: Triglycerides 1096 mg/dl (<150)
[2019-09-15 14:46] LABS: Chloride 99 mmol/L (96-108)
[2019-09-15 14:49] LABS: ALT/SGPT 84 U/l (0-40); AST/SGOT 76 U/l (0-37); Albumin 4.1 gm/dL (3.2-5.2); Albumin/Globulin Ratio 1.4 (1.0-2.3); Alkaline Phosphatase 87 U/L (39-117); Bilirubin,Direct 0.3 mg/dL (0.0-0.3); Bilirubin,Total 0.9 mg/dL (0.0-1.0); Blood Urea Nitrogen 4 mg/dl (6-20); Carbon Dioxide 21 mmol/L (22-30); Glomerular Filtration Rate 118; Glucose 233 mg/dL (70-105); Lactate Dehydrogenase 195 U/L (94-250); Phosphorous 1.5 mg/dL (2.7-4.5); Uric Acid 4.8 mg/dL (2.5-8.0)
[2019-09-15 15:21] LABS: Triglycerides 1152 mg/dl (<150)
[2019-09-15] MEDS ORDERED: NEUTRA PHOS 1 PACKET PO ONE (16:06)
[2019-09-15] MEDS ORDERED: DEXTROSE 50% 50 ML VIAL IV PRN (16:36)
[2019-09-15] MEDS ORDERED: DEXTROSE 31 GM ORAL.SUSP PO PRN (16:36)
[2019-09-15] MEDS ORDERED: INSULIN GLARGINE, HUMAN 1 UNIT/0.01 ML SQ ONE (16:45)
[2019-09-15] MEDS: INSULIN LISPRO 1 UNIT/0.01 ML UNIT SQ SCH (17:59)
[2019-09-15] MEDS: SENNOSIDES/DOCUSATE SODIUM 1 TAB TABLET PO SCH (20:52)
[2019-09-16 06:16] LABS: Hematocrit 37.7 % (40.1-51.0); Hemoglobin 13.4 g/dL (13.7-17.5); Mean Cell Volume 88.3 fL (80.0-100.0); Mean Corpuscular HGB Conc 35.5 g/dL (31.0-36.0); Mean Platelet Volume 10.4 fL (7.4-10.4); Platelet Count 183 K/mcL (140-440); RBC 4.27 M/mcL (4.63-6.08); Red Cell Distribution Width 12.8 % (11.5-14.5); WBC 9.9 K/mcL (4.50-11.00)
[2019-09-16 06:47] LABS: ALT/SGPT 65 U/l (0-40); AST/SGOT 54 U/l (0-37); Albumin 3.5 gm/dL (3.2-5.2); Albumin/Globulin Ratio 1.3 (1.0-2.3); Alkaline Phosphatase 70 U/L (39-117); Bilirubin,Direct 0.3 mg/dL (0.0-0.3); Bilirubin,Total 0.8 mg/dL (0.0-1.0); Blood Urea Nitrogen 4 mg/dl (6-20); Calcium 8.7 mg/dl (8.6-10.4); Carbon Dioxide 22 mmol/L (22-30); Chloride 101 mmol/L (96-108); Globulin 2.6 gm/dL (2.2-3.7); Glomerular Filtration Rate 104; Glucose 164 mg/dL (70-105); Lactate Dehydrogenase 194 U/L (94-250); Phosphorous 4.1 mg/dL (2.7-4.5); Uric Acid 5.1 mg/dL (2.5-8.0)
[2019-09-16 07:11] LABS: Triglycerides 1059 mg/dl (<150)
[2019-09-16] MEDS: 0.45 % SODIUM CHLORIDE 1,000 ML IV SCH (07:26)
[2019-09-16] MEDS: DEXTROSE 5%-1/2NS 1,000 ML IV SCH ×2 (07:26→09:09)
[2019-09-16] MEDS: 0.9 % SODIUM CHLORIDE 10 ML SYRINGE IV SCH (07:40)
[2019-09-16] MEDS: INSULIN LISPRO 1 UNIT/0.01 ML UNIT SQ SCH ×2 (07:41→12:08)
[2019-09-16] MEDS ORDERED: metFORMIN 500 MG TAB.XL.24H PO SCH (08:00)
[2019-09-16] MEDS: 0.9 % SODIUM CHLORIDE 1,000 ML IV SCH (08:39)
[2019-09-16] MEDS ORDERED: INSULIN GLARGINE, HUMAN 1 UNIT/0.01 ML SQ SCH (09:00)
[2019-09-16] MEDS ORDERED: ATORVASTATIN 40 MG TABLET PO SCH (09:00)
[2019-09-16] MEDS: HEPARIN 5,000 UNIT/ML VIAL SQ SCH (09:06)
[2019-09-16] MEDS: FOLIC ACID 1 MG TABLET PO SCH (09:06)
[2019-09-16] MEDS: DOCUSATE SODIUM 100 MG CAPSULE PO SCH (09:06)
[2019-09-16] MEDS: MULTIVIT,THER IRON,CA,FA & MIN 1 TABLET PO SCH (09:07)
[2019-09-16] MEDS: CYANOCOBALAMIN (VITAMIN B-12) 500 MCG TABLET PO SCH (09:07)
[2019-09-16] MEDS: THIAMINE 100 MG TABLET PO SCH (09:08)
--- NOTE | 2019-09-16 09:25 | Discharge Summary ---
Medical - DS: Prov Patient information: Note initiated : 09/16/19 at 9:22 am Service Date, if different from initiated Date: [] Patient: Marin Antonio 24 y/o M admitted on 09/14/19 for "Heart going fast". Chief Complaint: [] Date of admission: 09/14/19 18:00 Discharge date: 09/16/19 Consults: 09/14/19 Consult to Physician [CONS] Stat Comment: Consulting Provider: Benito Greenwood Reason For Exam: Physician to Consult Medical - DS: Meds - Discharge Medications Prescriptions: metFORMIN [Glucophage] 500 mg PO BIDCC #90 tab.xl.24h Prescription Printed Insulin Lispro [HumaLOG] 1 unit SQ ACHS #1 unit Prescription Printed Insulin Glargine, Human [Lantus] 50 unit SQ DAILY 60 Days unit Prescription Printed Atorvastatin [Lipitor] 40 mg PO DAILY #60 tab Prescription Printed Active and Home Medications: Home Medications Atorvastatin [Lipitor] 40 mg PO DAILY #60 tab 09/16/19 [Rx Last Taken Unknown] Insulin Glargine, Human [Lantus] 50 unit SQ DAILY 60 Days unit 09/16/19 [Rx Last Taken Unknown] Insulin Lispro [HumaLOG] 1 unit SQ ACHS #1 unit 09/16/19 [Rx Last Taken Unknown] metFORMIN [Glucophage] 500 mg PO BIDCC #90 tab.xl.24h 09/16/19 [Rx Last Taken Unknown] Medical - DS: Hosp Hospital Course: Discharge diagnosis * DKA -new onset diabetes. Initially managed on insulin drip weaned to basal prandial insulin. Discharging on 50 units of Lantus daily along with sliding scale insulin/metformin 100 twice daily extended release. Patient needs to follow with primary care physician for better titration and management of outpatient diabetes. * Hyperlipidemia/hypertriglyceridemia started on atorvastatin. * Anxiety clinically improved * Elevated LFTs likely nonalcoholic steatohepatitis. Recommended weight loss measures. Started on statin * Obesity with BMI of 40. Recommend weight loss interventions and dietary modification * Electrolyte replacement as indicated Brief hospital course Mr. Antonio is a 24 year old M with no significant primarily history except for obesity with a BMI over 40. Patient works at [employer] however over the last week has noted increasing thirst and urination and a feeling of dehydration. Over the last 48 hours he is gotten progressively weaker and fatigued. This morning could not get out of bed, was lightheaded dizzy diaphoretic and felt like a log laying on the bed. Symptoms were associated with chest palpitations and blurred vision. With increasing concerns he presents to the ER Initial work-up was consistent with DKA with blood sugars over 600 elevated anion gap. Patient was started on insulin drip. Hospitalist service was consulted At the time evaluation patient is anxious but able to answer most of the questions. He denies fever, chills, shortness breath, changes in medications. He further denies diarrhea, dysuria or weight loss. He endorses to multiple family members including both parents with diabetes. Patient appears very anxious. Denies headache photophobia 09/14-patient doing well on insulin drip. At 5 units/h. Transition to subcu insulin once steady state achieved. Anion gap bridged and bicarb normalized. No overnight events. Stable hemodynamics and vitals. Sodium 138, potassium 3.5. LFTs improving. Triglycerides 1100 down from 1345. 617-patient doing well. No overnight events. No concerns per staff. Tra nsition to subcu insulin/CC diet. Discharging with advised to continue basal prandial insulin/metformin along with statin in light of hypertriglyceridemia and elevated LDL/cholesterol. Patient was also advised to follow-up with outpatient diabetic education and continue aggressive weight loss regime to improve glycemic control. Discharge diagnosis: . - Time Spent with Patient Total time spent providing and/or coordinating discharge services: Greater than 30 minutes Medical - DS: Exam - Constitutional Vitals: Vital Signs Temp Pulse Resp BP BP Pulse Ox 09/16/19 07:59 97.1 F 20 130/80 100 09/16/19 06:00 20 146/100 99 09/16/19 04:00 97.6 F 97 H 16 130/80 97 09/16/19 02:00 62 16 135/89 98 09/16/19 00:00 97.1 F 89 16 136/92 100 09/15/19 22:00 89 16 143/98 99 09/15/19 19:16 83 20 141/84 97 09/15/19 18:34 97.8 F 09/15/19 18:00 20 150/102 158/114 100 09/15/19 15:53 97.1 F 20 154/106 100 09/15/19 14:00 20 154/109 100 09/15/19 12:34 81 09/15/19 11:38 97.1 F 20 159/104 98 09/15/19 10:00 97.9 F 16 143/91 97 Intake and Output 09/15/19 09/16/19 09/16/19 21:59 05:59 13:59 Intake Total 1307 800 120 Output Total 700 Balance 607 800 120 Intake: IV 1207 Dextrose 5%-1/2Ns IV Solution 1 1142 ,000 ml @ 100 mls/hr IV .Q10H MICK Rx#:[id number] HumuLIN R 50 UNIT In Sodium 65 Chloride 0.9% 99.5 ml @ 1 UNIT/ HR 2 mls/hr IV DUR MICK Rx#: [id number] Oral 100 800 120 Output: Void Amount 700 Other: Meal Dinner Breakfast Percent of Meal Consumed 100% 75% Feeding Ability Independent Independent Urine Appearance Clear Clear Urine Color Pale Pale Urine Odor Sweet Sweet Stool Size Moderate Stool Color Brown Stool Consistency Formed Weight 265 lb Medical - DS: Data Labs on day of discharge: Labs from last 24 hours 09/16/19 09/16/19 09/16/19 04:50 04:50 04:50 WBC 9.9 RBC 4.27 L Hgb 13.4 L Hct 37.7 L MCV 88.3 MCH 31.4 MCHC 35.5 RDW 12.8 Plt Count 183 MPV 10.4 Total Counted Pending Band Neutrophils % Not Reportable Platelet Estimate Pending RBC Morphology Pending Sodium 135 Potassium 3.5 Chloride 101 Carbon Dioxide 22 Anion Gap 12.0 BUN 4 L Creatinine 1.0 GFR Calculation 104 Glucose 164 H Hemoglobin A1c 10.0 H Estim Average Glucose 240 Uric Acid 5.1 Calcium 8.7 Phosphorus 4.1 Magnesium 2.1 Total Bilirubin 0.8 Direct Bilirubin 0.3 GGT 81 H AST 54 H ALT 65 H Alkaline Phosphatase 70 Lactate Dehydrogenase 194 Total Protein 6.1 Albumin 3.5 Globulin 2.6 Albumin/Globulin Ratio 1.3 Triglycerides 1059 H Cholesterol LDL Cholesterol, Calc Non-HDL Cholesterol HDL Cholesterol 09/15/19 09/15/19 13:10 04:48 WBC RBC Hgb Hct MCV MCH MCHC RDW Plt Count MPV Total Counted Band Neutrophils % Platelet Estimate RBC Morphology Sodium 134 Potassium 3.5 Chloride 99 Carbon Dioxide 21 L Anion Gap 14.0 BUN 4 L Creatinine 0.9 GFR Calculation 118 Glucose 233 H Hemoglobin A1c Estim Average Glucose Uric Acid 4.8 Calcium 9.0 Phosphorus 1.5 L Magnesium 1.9 Total Bilirubin 0.9 Direct Bilirubin 0.3 GGT 92 H AST 76 H ALT 84 H Alkaline Phosphatase 87 Lactate Dehydrogenase 195 Total Protein 7.1 Albumin 4.1 Globulin 3.0 Albumin/Globulin Ratio 1.4 Triglycerides 1152 H 1096 H Cholesterol 237 H LDL Cholesterol, Calc TNP Non-HDL Cholesterol 222 H HDL Cholesterol 15 L Medical - DS: A/P - Patient/Caregiver Discharge Instructions Activity: increase activity as tolerated Diet: Consistent Carbohydrate Additional Instructions: Follow-up primary care physician at the earliest possible appointment(patient's mother would like him to establish care with Dr. Beti Valentine) Continue metformin 500 mg extended release twice daily Continue atorvastatin Lantus started 50 units daily and titrate dose based on fasting a.m. blood sugar, explained the insulin dose is not an absolute number and will require daily modification based on fasting a.m. blood sugar levels Schedule outpatient diabetes counseling/education Aggressive weight loss interventions/dietary modification Return to ER if lightheadedness dizziness nausea vomiting Monitor for signs of hypoglycemia that may include palpitations/diap horesis/tremors, Always keep sugar candy nearby to counter episodes of hypoglycemia Prescriptions: metFORMIN [Glucophage] 500 mg PO BIDCC #90 tab.xl.24h Prescription Printed Insulin Lispro [HumaLOG] 1 unit SQ ACHS #1 unit Prescription Printed Insulin Glargine, Human [Lantus] 50 unit SQ DAILY 60 Days unit Prescription Printed Atorvastatin [Lipitor] 40 mg PO DAILY #60 tab Prescription Printed - Problem Maintenance (1) DKA (diabetic ketoacidoses) Status: Acute - Follow up Plan Follow up with: Froilan Frederick MD, FAAFP [Physician] - Sahara Arnold [Registered Nurse] - (Call or schedule an appointment as needed) Disposition: Home, Self-Care Care Plan Goals: This discharge packet is provided to you to help keep you informed about your care. We want to ensure you get everything you need when you go home. You will also be receiving a call from us in a few days to follow up with you and see how you are doing since your discharge. This gives us a chance to listen to any concerns you maybe experiencing since you were discharged or any additional needs you may have, as well as providing us feedback on your care experience. We strive to always provide excellent care and thank you for your feedback and for choosing [facility]. Prognosis: Fair Rehab Potential: Fair I certify that the patient requires SNF services: No Overall status at discharge: patient is progressing back to baseline Medical - DS: Qual - VTE Deep Vein Thrombosis/Pulmonary Embolism Present on Admission: No
[2019-09-16 10:15] LABS: Band Neutrophils % 1 % (0-10); Eosinophils % (Manual) 3 % (0-7); Lymphocytes % 34 % (15-49); Monocytes % (Manual) 3 % (1-12); Platelet Estimate NORMAL (NORMAL); Polychromasia 1+ (NONE SEEN); RBC Morphology ABNORM (NORMAL); Segmented Neutrophils % 59 % (38-78)
== END 2019-09-16 14:25 | disposition home or self-care (01) | DRG 638 ==
LOC: ED 12:50 → ICU 18:00
PROVIDERS: ADMIT Internal Medicine; ATTEND Internal Medicine